=== PATIENT | female | born 1975 | race Caucasian/White ===

== ENCOUNTER 2017-11-05 22:46 | Emergency (ER) | payer SELFPAY ==
[~2017-11-05] VITALS: Ht 165.1 cm; Wt 78.5 kg
[2017-11-05 22:47] VITALS: Ht 165.1 cm; Wt 78.5 kg
[2017-11-06 03:47] LABS: microscopic required? NO
[2017-11-06 04:01] LABS: UA SPECIFIC GRAVITY >=1.030 (1.005-1.035); urine erythrocyte NEGATIVE (NEGATIVE)
[2017-11-06 05:08] VITALS: BP 108/70
== END 2017-11-06 05:08 | disposition home or self-care (01) ==
LOC: ED 22:46
PROVIDERS: Emergency Medicine
DX: N81.10 Cystocele, unspecified (principal)